=== PATIENT | female | born 1950 | race Asian ===

== ENCOUNTER 2023-03-09 11:53 | Day surgery (SDC) | payer MEDICARE ==
[2023-03-09] MEDS ORDERED: ceFAZolin 2 GM VIAL ONE (12:06)
[2023-03-09] MEDS ORDERED: ACETAMINOPHEN 1,000 MG/100 ML 1,000 MG/100 ML BAG IV ONE (12:06)
[2023-03-09] MEDS ORDERED: PROPOFOL 200 MG/20 ML VIAL IVP ONE (12:43)
[2023-03-09] MEDS ORDERED: ROCURONIUM 50 MG/5 ML VIAL ONE (12:43)
[2023-03-09] MEDS ORDERED: fentaNYL 100 MCG/2 ML VIAL ONE (12:44)
[2023-03-09] MEDS ORDERED: MIDAZOLAM 2 MG/2 ML VIAL ONE (12:44)
[2023-03-09] MEDS ORDERED: OXYMETAZOLINE HCL 100 SPRAYS BOTTLE ONE (12:51)
[2023-03-09] MEDS ORDERED: CHLORHEXIDINE GLUCONATE 15 ML UDC PO ONE ×2 (12:51→14:16)
[2023-03-09] MEDS ORDERED: LIDOCAINE 1%-EPI 1:100000 20 ML MDV ONE (12:51)
[2023-03-09] MEDS ORDERED: LACTATED RINGERS 1,000 ML IV ONE ×2 (12:56→15:24)
[2023-03-09] MEDS ORDERED: BACITRACIN ZINC OINT 1 PACKET TOP ONE (13:03)
--- NOTE | 2023-03-09 13:03 | ANESTHESIA ---
Pre-Anesthesia VS, & Labs - Diagnosis Fracture of left zygomatic arch - Procedure ORIF left zygomatic arch Vital Signs: Temp Pulse Resp BP Pulse Ox O2 Flow Rate 37.1 C 74 16 145/91 H 96 03/09/23 12:34 03/09/23 12:34 03/09/23 12:34 03/09/23 12:34 03/09/23 12:34 Height: 5 ft 6 in Weight (kg): 56 kg Body Mass Index: 19.9 BMI Classification: Normal - NPO >8 hours - Is Patient ?: No - Lab Results Current Lab Results: Laboratory Tests 03/09/23 12:38: POC Whole Bld Glucose 74 Lab results reviewed: Yes Home Medications and Allergies Home Medications: Ambulatory Orders Multivit-Min/Iron/Folic Acid/K [Multi-Day Plus Minerals Tablet] 1 tab PO DAILY 03/07/23 Multivit-Min/Iron/Folic Acid/K [Multi-Day Plus Minerals Tablet] 1 tab PO DAILY 03/07/23 Allergies/Adverse Reactions: Allergies Allergy/AdvReac Type Severity Reaction Status Date / Time Sulfa (Sulfonamide Allergy Unknown Unknown Verified 03/07/23 14:17 Antibiotics) latex AdvReac Unknown Unknown Verified 03/07/23 14:17 Anes History & Medical History - Anesthetic History Anesthesia Complications: reports: No previous complications - Medical History Cardiovascular: reports: High cholesterol Pulmonary: reports: None Gastrointestinal: reports: None Urinary: reports: None Neuro: reports: None Musculoskeletal: reports: Osteoarthritis, Fibromyalgia, Osteoporosis Endocrine/Autoimmune: reports: None Skin: reports: Herpes zoster Smoking Status: Never smoker Psychosocial: reports: No issues indicated History of Cancer?: No - Surgical History Gynecologic: reports: Breast implants Dermatologic: Exam General: Alert, Oriented x3, Cooperative Dental: WNL Mouth Opening: Can't Open Mouth (Painful to open mouth) Neck Mobility: Normal Thyromental Distance: 4-6 cm Mental/Cognitive Status: Alert/Oriented X3, Normal for patient Plan Anesthesia Type: General Consent for Procedure(s) Verified and Reviewed: Yes Code Status: Attempt Resuscitation ASA classification: 2-Mild systemic disease Is this case an emergency?: No
[2023-03-09] MEDS ORDERED: fentaNYL 100 MCG/2 ML VIAL IVP PRN (13:08)
[2023-03-09] MEDS ORDERED: ONDANSETRON 4 MG/2 ML VIAL IVP PRN ×2 (13:08→16:32)
[2023-03-09] MEDS ORDERED: MORPHINE 2 MG/ML CARPUJECT IVP PRN ×2 (13:08→16:32)
[2023-03-09] MEDS ORDERED: ATROPINE ABBOJECT 1 MG/10 ML SYRINGE IVP PRN (13:08)
[2023-03-09] MEDS ORDERED: NALOXONE 0.4 MG/ML VIAL IVP PRN (13:08)
[2023-03-09] MEDS ORDERED: MINERAL OIL/PETROLAT OPHTH OINT ONE (13:38)
[2023-03-09] MEDS ORDERED: DEXAMETHASONE 10 MG/ML VIAL ONE (13:49)
[2023-03-09] MEDS ORDERED: LACTATED RINGERS 1,000 ML IV SCH (14:00)
[2023-03-09] MEDS ORDERED: LIDOCAINE 1%-EPI 1:100000 20 ML MDV SUBQ ONE (14:16)
[2023-03-09] MEDS ORDERED: OXYMETAZOLINE HCL 100 SPRAYS BOTTLE NAS ONE (14:16)
[2023-03-09] MEDS ORDERED: ONDANSETRON 4 MG/2 ML VIAL ONE (14:46)
[2023-03-09] MEDS ORDERED: SUGAMMADEX 200 MG/2 ML VIAL IVP ONE (14:47)
[2023-03-09] MEDS ORDERED: HYDROmorphone 1 MG/ML CARPUJECT ONE (14:50)
--- NOTE | 2023-03-09 15:19 | CT Report ---
PROCEDURE: Maxillofacial WO INDICATIONS: fell 2 weeks ago, fx left orbital floor, fx ZMC TECHNIQUE: Noncontrast 1.5 mm thick axial images acquired from the mandible through the frontal sinuses, with co tiffanie and sagittal reformatting. For radiation dose reduction, the following was used: automated ex posure control, adjustment of mA and/or kV according to patient size. COMPARISON: None. FINDINGS: Image quality: Excellent. Bones and teeth: Orbital bravo on the right are intact. Sinus bravo on the right show no fracture o r deformity. Nasal bones and septum are intact. Visualized portions of the mandible bilaterally dem onstrate no fractures or subluxation. Zygomatic arch is intact on the right. Pterygoid plates bilat erally are intact. Visualized portions of the skull base and auditory canals are intact. On the left there has been previously documented fractures involving the zygomatic arch, lateral wall of the left maxillary sinus, the anterior wall of the left maxillary sinus and also the anterior inf erior wall of the left maxillary sinus. A nondisplaced inferior left orbital floor fracture is incide ntally noted. Sinuses: Paranasal sinuses are aerated, without fluid levels, mucosal thickening, or mucoceles. Mas toid air cells are aerated. Soft tissues: No edema, masses, or fluid collections. No enlarged lymph nodes. No soft tissue lace rations or debris. Vascular: Visualized vascular structures appear normal in the absence of contrast. Bony vascular fo ramina and canals are intact. IMPRESSION: The reported prior documentation presumably by CT scanning is not available for review. The current study shows subacute fractures involving only the left maxillary sinus, left zygomatic ar ch, and the inferior margin of the left orbit. No evidence of posttraumatic complication such as roman elsa or infection. Reviewed by: Tree Frederick MD on 03/09/2023 3:18 PM PST Approved by: Tree Frederick MD on 03/09/2023 3:18 PM PST Station ID: [id number]
[2023-03-09] MEDS ORDERED: LABETALOL 20 MG/4 ML SYRINGE IVP ONE ×2 (15:47→15:56)
--- NOTE | 2023-03-09 15:56 | OPERATIVE REPORT ---
Operative Report - General Planned Procedure: ORIF left ZMC via multiple approaches Pre-Op Diagnosis: left ZMC fracture Procedure Performed: ORIF left ZMC Post Op Diagnosis: left ZMC fracture - Procedure Note Primary Surgeon: Kan Randall DDS Anesthesia Provider: Fletcher Rodriguez Anesthesia Technique: General ET tube ( oral JOSIE taped to the right side of the mouth) Estimated Blood Loss (mL): 25 Indications: this is a 72-year-old female status post ground-level fall. Clinical and radiographic examination were consistent with comminuted depressed left ZMC fracture. It was decided that ORIF of the left zygomaticomaxillary complex complex was indicated. The risks, benefits, and alternatives of this plan were discussed with the patient including pain swelling bleeding infection, need for further surgery, poor cosmesis, malocclusion, damage to teeth, nerve damage with permanent loss of sensation, nerve damage with permanent paralysis of the left side of the face or of portions thereof, scarring, loss of vision, other damage to the eye and the surrounding structures. Adequate time was given answer all questions and informed consent was obtained. Findings: Adequate time was given answer all questions and informed consent was obtained. General anesthesia was induced by the anesthesia team and the airway was secured with a oral JOSIE tube taped to the right side of mouth. all pressure points were padded and checked. The right eye was protected with a Tegaderm. The left eye was protected with Lacri-Lube and with a corneal shield. Throat pack was placed. The arms were tucked. A formal timeout was executed. Local anesthesia was achieved with 8 cc of 1% lidocaine with 1 100,000 epinephrine. Attention was directed to the left lateral orbital rim. An incision was made through skin with a #15 blade. The deep tissues were dissected with electrocautery and with blunt dissection. The periosteum was incised with electrocautery. Subperiosteal dissection was performed and the fracture was easily encountered. It was still mobile. Attention was directed to the left maxilla intraorally. Retractors were used to protect the Stensen's duct. The an incision was made from first molar to the midline down to bone. Subperiosteal dissection was performed with a #9 periosteal elevator. The fracture was easily encountered. The maxilla was exposed from the piriform rim to the zygomatic buttress and superiorly to the infraorbital nerve. Care was taken to protect the infraorbital nerve. It was visualized and intact. A long curved plate was used to stabilize the zygomatic buttress. The bone quality was low. Reduction of the zygoma was achieved after some effort with a urethral probe. The problem that was that as soon as the fractured segment of zygoma was not held laterally at quickly rolled back inward. To mediate this problem the first step was to fixate the curved plate onto the zygomatic buttress with 2 screws. The fracture was then held up in a reduced position. fracture was then held up in a reduced position. fracture was then held up in a reduced position. fracture was then held up in a reduced position. fracture was then held up in a reduced position. fracture was then held up in a reduced position. fracture was then held up in a reduced position. fracture was then held up in a reduced position. fracture was then held up in a reduced position. The screws in the zygomatic buttress as well as in the posterior maxilla had good bite and were stable. All the screws were checked in both plates and they were all stable. The fracture was now no longer mobile. The reduction was good. Attention was directed back to the left lateral rim area. The neuro landen was removed. The site was irrigated. A 4-hole plate with a gap was placed 2 screws on the stable segment and 2 screws on the fractured and mobile segment. Both surgical areas were irrigated copiously. The lateral brow incision was closed by first reapproximating periosteum over the plate with 4 oh-0 Vicryl suture. The muscular layers were then reapproximated with 4-0 Vicryl suture. The skin was then reapproximated with 6- 0 Prolene suture. The Risdon incision of the left maxilla was then closed with 4-0 Vicryl suture in a running interlocking fashion. The occlusion was checked and found to be stable. The throat pack was removed. A forced duction test was performed and it demonstrated good normal mobility of the eye with no evidence of entrapment. The patient was then emerged uneventfully from anesthesia and was extubated. She was transferred to the PACU in stable condition. Her vision was checked and she was able to count fingers in the PACU. Complications: None
[2023-03-09] MEDS ORDERED: HYDROmorphone 0.5 MG/0.5 ML SYRINGE ONE (16:00)
[2023-03-09] MEDS: HYDROmorphone 0.5 MG/0.5 ML SYRINGE IVP PRN ×2 (16:01→16:14)
[2023-03-09] MEDS ORDERED: KETOROLAC 15 MG/ML VIAL ONE (16:24)
[2023-03-09] MEDS ORDERED: KETOROLAC 15 MG/ML VIAL IVP STA (16:25)
[2023-03-09] MEDS ORDERED: oxyCODONE 5 MG TABLET PO PRN (16:34)
--- NOTE | 2023-03-09 18:09 | ANESTHESIA POST OP EVALUATION ---
Anesthesia Post Eval - Post Anesthesia Eval Vitals: Last Vital Signs Temp 36.6 C 03/09/23 17:27 Pulse 62 03/09/23 17:27 Resp 16 03/09/23 17:27 BP 140/82 H 03/09/23 17:27 Pulse Ox 95 03/09/23 17:27 O2 Flow Rate CV Function Including HR & BP: Stable Pain Control: Satisfactory Nausea & Vomiting: Negative Mental Status: Baseline Respiratory Status: Airway Patent Hydration Status: Satisfactory Anesthesia Complications: None
[2023-03-10 07:43] VITALS: BP 130/65; O2SAT 95
== END 2023-03-10 09:00 | disposition home or self-care (01) ==
LOC: SDS 11:53 → MS2 15:32 → SDS 03-10 09:00
PROVIDERS: ATTEND Dentist Oral and Maxillofacial Surgery
DX: S02.40FA Zygomatic fracture, left side, initial encounter for closed fracture (principal)
CPT/HCPCS: 21365; 70486; A9270; C1713; J0131; J1170; J7120